=== PATIENT | male | born 1985 | race American Indian/Alaskan Native ===

== ENCOUNTER 2017-10-14 21:32 | Emergency (ER) | payer SELFPAY ==
[2017-10-14] MEDS ORDERED: Lidocaine 1% 20 ML MDV INJECT ONE (21:50)
--- NOTE | 2017-10-14 22:25 | EDM.PDOC ---
ED HPI GENERAL MEDICAL PROBLEM - General Chief Complaint: Laceration Stated Complaint: CUT RIGHT WRIST Time Seen by Provider: 10/14/17 21:50 Source of Information: Reports: Patient History Limitations: Reports: No Limitations - History of Present Illness INITIAL COMMENTS - FREE TEXT/NARRATIVE: 32-year-old male accidentally cut his right wrist with a back grinder. He was holding the tool with his left hand when it dropped striking his right wrist. He has a transverse 5 cm laceration on the flexor surface of the wrist which is moderately deep but appears to have missed any deep tendinous structures. He has normal strength of the hand. Bleeding is controlled. Onset: Sudden Duration: Hour(s): (Within the last hour) Location: Reports: Upper Extremity, Right Associated Symptoms: Reports: No Other Symptoms - Related Data Allergies Allergy/AdvReac Type Severity Reaction Status Date / Time No Known Allergies Allergy Verified 10/14/17 21:44 Home Meds: Home Meds NK [No Known Home Meds] 10/14/17 [History] Past Medical History - Past Health History Medical/Surgical History: Denies Medical/Surgical History Social & Family History - Tobacco Use Smoking Status *Q: Current Every Day Smoker Years of Tobacco use: 15 Packs/Tins Daily: 0.2 ED ROS GENERAL - Review of Systems Review Of Systems: See Below Constitutional: Denies: Fever Respiratory: Denies: Shortness of Breath GI/Abdominal: Denies: Nausea, Vomiting Psychiatric: Reports: Anxiety (Very anxious about his wound) ED EXAM, SKIN/RASH Exam: See Below Exam Limited By: No Limitations General Appearance: Alert, No Apparent Distress, Anxious Respiratory/Chest: No Respiratory Distress Extremities: Other (Exam is otherwise limited to the right hand. The patient has a 5 cm transverse laceration just proximal to the palm over the distal wrist. It is somewhat irregular and embedded with small particles of metal.) Neurological: Alert, Oriented, Other (No significant paresthesia or numbness of the hand distal to the injury) Course - Vital Signs Last Recorded V/S: Last Vital Signs Temp 98.4 F 10/14/17 22:36 Pulse 89 10/14/17 22:36 Resp 16 10/14/17 22:36 BP 138/84 10/14/17 22:36 Pulse Ox 99 10/14/17 22:36 - Orders/Labs/Meds Meds: Medications Discontinued Medications Generic Name Dose Route Start Last Admin Trade Name Emilio PRN Reason Stop Dose Admin Lidocaine HCl 20 ml 10/14/17 21:50 10/14/17 21:54 Xylocaine 1% INJECT 10/14/17 21:51 20 ml ONETIME ONE Administration - Re-Assessments/Exams Free Text/Narrative Re-Assessment/Exam: 10/14/17 22:22 The laceration was anesthetized with 1% lidocaine, flushed thoroughly with saline and several small black foreign bodies were removed. It was flushed a second time with saline and Hibiclens. 4 5-0 Vicryl sutures were used to close the subcutaneous tissue and 7 4-0 Ethilon sutures were used to close the external laceration. Bacitracin and dressing was applied. Patient will be placed on cephalexin 500 mg 3 times a day for the next 7 days, sutures can be removed in 9 days. He is to keep the wound clean and dry while healing and use ibuprofen for pain. He can recheck sooner if concerns of infection or not healing satisfactorily. Departure - Departure Time of Disposition: 22:38 Disposition: Home, Self-Care 01 Condition: Good Clinical Impression: Laceration of wrist Qualifiers: Encounter type: initial encounter Laterality: right Qualified Code(s): S61.511A - Laceration without foreign body of right wrist, initial encounter - Discharge Information Instructions: Laceration Care, Adult Referrals: PCP,None [Primary Care Provider] - Forms: ED Department Discharge Care Plan Goals: Keep wound covered and clean while healing. Sutures can be removed in 9 days, on October 23. Recheck sooner if concerns of infection or not healing satisfactorily. Ibuprofen will help with pain. Take antibiotic as prescribed, until gone.
== END 2017-10-14 22:39 | disposition home or self-care (01) ==
LOC: JP.ED 21:32
DX: S61.511A Laceration without foreign body of right wrist, initial encounter (principal); F17.210 Nicotine dependence, cigarettes, uncomplicated; W29.8XXA Contact with other powered hand tools and household machinery, initial encounter
CPT/HCPCS: 12002; 12042; 99283-25

== ENCOUNTER 2020-03-24 18:16 | Emergency (ER) | payer MEDICAID ==
--- NOTE | 2020-03-24 19:28 | EDM.PDOC ---
ED HPI GENERAL MEDICAL PROBLEM - General Chief Complaint: ENT Problem Stated Complaint: PAIN ON RT SIDE OF HEAD BEHIND EAR Time Seen by Provider: 03/24/20 19:11 Source of Information: Reports: Patient History Limitations: Reports: No Limitations - History of Present Illness INITIAL COMMENTS - FREE TEXT/NARRATIVE: Ousmane is a 34-year-old male presenting to the ED for evaluation of a "bump behind his right ear" that started yesterday and has become more painful today. Patient thought he had a pimple behind the ear and has been picking at it all night. Now the area has become more inflamed, tender, red, hot, and swollen. There has been no drainage from the site. Patient is unsure if he has a history of MRSA in the past. It does appear that he has been on Bactrim previously though. He denies any fever, chills, headache, nausea, vomiting, ringing in the ears or loss of hearing. Right Head Pain Score (Numeric/FACES): 7 - Related Data Allergies Allergy/AdvReac Type Severity Reaction Status Date / Time No Known Allergies Allergy Verified 03/24/20 19:15 Home Meds: Home Meds NK [No Known Home Meds] 03/24/20 [History] Past Medical History - Past Health History Medical/Surgical History: Denies Medical/Surgical History - Past Surgical History Head Surgeries/Procedures: Reports: None Dermatological Surgical History: Reports: None Social & Family History - Tobacco Use Tobacco Use Status *Q: Never Tobacco User - Caffeine Use Caffeine Use: Reports: Energy Drinks - Recreational Drug Use Recreational Drug Use: No ED ROS ENT - Review of Systems Review Of Systems: See Below Constitutional: Reports: No Symptoms HEENT: Reports: Other (Tenderness and swelling behind the right ear.) Respiratory: Reports: No Symptoms Cardiovascular: Reports: No Symptoms Endocrine: Reports: No Symptoms GI/Abdominal: Reports: No Symptoms : Reports: No Symptoms Musculoskeletal: Reports: No Symptoms Skin: Reports: Lesions (Lump that is quite tender behind the right ear.) Neurological: Reports: No Symptoms Psychiatric: Reports: No Symptoms Hematologic/Lymphatic: Reports: No Symptoms Immunologic: Reports: No Symptoms ED EXAM, ENT - Physical Exam Exam: See Below Exam Limited By: No Limitations General Appearance: Alert, WD/WN, No Apparent Distress Eye Exam: Bilateral Eye: EOMI, PERRL Ears: Normal External Exam, Other (Small abscess behind the earlobe in the fold. This is hot, red, tender and swollen. I did incise it with a number 18-gauge needle and a small amount of purulent discharge was expressed.) Head: Atraumatic, Normocephalic Neck: Normal Inspection, Supple, Non-Tender, Full Range of Motion. No: Lymphadenopathy (R), Lymphadenopathy (L) Course - Vital Signs Last Recorded V/S: Last Vital Signs Temp 36.3 C 03/24/20 19:06 Pulse 73 03/24/20 19:06 Resp 16 03/24/20 19:06 BP 120/72 03/24/20 19:06 Pulse Ox 98 03/24/20 19:06 - Re-Assessments/Exams Free Text/Narrative Re-Assessment/Exam: 03/24/20 19:30 procedure note: Incise and drainage of cyst/abscess behind the right ear. The area was cleansed with alcohol and an 18-gauge needle was inserted into the core of the cystic lesion. A small amount of purulent discharge was expressed and the pocket was decompressed. Patient tolerated procedure well. Free Text/Narrative Re-Assessment/Exam: 03/24/20 19:30 my plan is to put the patient on Bactrim DS 1 tablet twice daily for likely MRSA abscess behind the right ear. Prescription was sent out HDFs so the patient can started tonight. Management of the wound was discussed and the patient was suitable for discharge in satisfactory condition. Indications return to the ED were discussed. Departure - Departure Time of Disposition: 19:31 Disposition: Home, Self-Care 01 Condition: Good Clinical Impression: Abscess of skin Qualifiers: Site of cutaneous abscess: head Qualified Code(s): L02.811 - Cutaneous abscess of head [any part, except face] - Discharge Information *PRESCRIPTION DRUG MONITORING PROGRAM REVIEWED*: Not Applicable *COPY OF PRESCRIPTION DRUG MONITORING REPORT IN PATIENT DEANDRA: Not Applicable Instructions: Skin Abscess, [id number] Referrals: PCP,None [Primary Care Provider] - Care Plan Goals: I am starting you on Bactrim DS 1 tablet twice daily for the next 10 days. This should continue to treat the infection behind her right ear. Should the infection worsen, you develop a fever, ringing in the ear, or headache please return to the ED for reevaluation. Sepsis Event Note (ED) - Focused Exam Vital Signs: Vital Signs Temp Pulse Resp BP Pulse Ox 03/24/20 19:06 36.3 C 73 16 120/72 98 - Problem List & Annotations (1) Abscess of skin SNOMED Code(s): 74021303 Code(s): L02.91 - CUTANEOUS ABSCESS, UNSPECIFIED Status: Acute Priority: Low Current Visit: Yes Qualifiers: Site of cutaneous abscess: head Qualified Code(s): L02.811 - Cutaneous abscess of head [any part, except face] - Problem List Review Problem List Initiated/Reviewed/Updated: Yes
== END 2020-03-24 19:44 | disposition home or self-care (01) ==
LOC: JP.ED 18:16
DX: L02.811 Cutaneous abscess of head [any part, except face] (principal)
CPT/HCPCS: 10060; 99283-25